=== PATIENT | female | born 1930 | race Caucasian/White ===

== ENCOUNTER 2017-01-04 12:58 | Emergency (ER) | payer MEDICARE, BC ==
[2017-01-04] MEDS ORDERED: SODIUM CHLORIDE 0.9% 10 ML FLUSH FLUSH PRN (13:12)
[2017-01-04] MEDS ORDERED: MECLIZINE 25 MG TAB PO ONE (13:13)
--- NOTE | 2017-01-04 13:15 | EDPRACDOC ---
- General Information Stated Complaint: GENERALIZED WEAKNESS Time Seen by Provider: 01/04/17 13:04 Information Source: Patient Mode Of Arrival: Ambulance Home Medications: Home Medications Omeprazole 20 mg PO DAILY 12/06/12 Triazolam 0.25 - 0.5 mg PO HS PRN 12/06/12 CYANOCOBALAMIN (Vitamin B-12) [Vitamin B-12 (cyanocobalamin)] 1,000 mcg IM .MONTHLY ON THE 05/30/14 Hum Insulin NPH/Reg Insulin Hm [Novolin 70-30 100 Unit/ml Vial] 60 unit SQ QAM 05/30/14 Apixaban [Eliquis] 5 mg PO BID 06/25/16 Calcium Carbonate [Oscal] 500 mg PO DAILY 06/25/16 Hydrocodone Bit/Acetaminophen [[place] 5-325 Tablet] 1 - 2 tab PO Q4H PRN Insulin Regular, Human [Novolin R] 5 - 10 unit SQ .BEFORE DINNER 06/25/16 Letrozole [Femara] 2.5 mg PO DAILY 06/25/16 Losartan/Hydrochlorothiazide [Losartan-Hctz 100-12.5 mg Tab] 1 tab PO DAILY Metoprolol Tartrate 25 mg PO DAILY 06/25/16 NPH, Human Insulin Isophane [Novolin N] 15 unit SQ QHS 06/25/16 Pravastatin Sodium 10 mg PO DAILY 06/25/16 Ergocalciferol (Vitamin D2) [Vitamin D] 50,000 units PO Tu@0900 01/04/17 Meclizine HCl [Antivert] 25 mg PO Q8H PRN #20 tab 01/04/17 Nitrofurantoin [Macrobid] 100 mg PO BID #14 cap 01/04/17 Sertraline HCl [Zoloft] 25 mg PO DAILY 01/04/17 Allergies/Adverse Reactions: Allergies Allergy/AdvReac Type Severity Reaction Status Date / Time adhesive Allergy See Verified 01/04/17 14:05 Comments palbociclib [From [facility]] Allergy Hives* Verified 01/04/17 14:05 - History of Present Illness Onset: today Exact Onset of Symptoms: Unknown HPI: Pt states sudden onset of dizziness described as room spinning upon standing up from bed. C/o nausea. Denies headache, fever, vision changes, cough, congestion , cp, sob, abd pain, changes in bowel or bladder, leg swelling, rash. Hx stage 4 breast cancer Symptoms Started: Reports: Suddenly Symptoms Description: Improved Weakness: Bilateral: Generalized Symptoms: Reports: Vertigo Symptom Severity: Reports: Unable to performs ADL's Associated signs and symptoms:: Reports: Nausea ED Past Medical History - History Reviewed Yes Nurses notes reviewed and agree except as marked - Patient Medical History Cardiac History: Reports: Atrial Fibrillation, Hypertension, Hypercholesterolemia Respiratory History: GI/ History: Reports: Urinary Tract Infection, Gastroesophageal Reflux Musculoskeletal History: Reports: Arthritis Psychological History: Reports: Anxiety. Denies: Depression Systemic History: Reports: Cancer (metastatic breast cancer), Diabetes Surgical History: Reports: Tonsillectomy/Adnoidectomy Date of Last Radiation Treatment: 10/2009 Date of Last Chemotherapy Date: 2008 - Family Medical History Reports: Hypertension, Diabetes, Cancer, Stroke, Cardiac Disorders - Social Medical History Smoking Status: Never smoker ETOH: None Substance Abuse: None EDM Review of Systems - Review of Systems Constitutional: Weakness Eyes: No Symptoms Reported. negative: Redness, Blurred Vision, Double Vision, Discharge, Pain, Light Sensitive, Photophobia Ears: No Symptoms Reported. negative: Pain, Hearing Loss, Drainage, Ear Pulling Throat: No Symptoms Reported. negative: Pain, Swelling Nose: No Symptoms Reported. negative: Congestion, Bleeding, Discharge, Injection, Swelling, Deformity, Ecchymosis, Tender, Abrasion, Laceration Mouth: No Symptoms Reported. negative: Pain, Drooling Respiratory: No Symptoms Reported. negative: Cough, Brassy Cough, Barky Cough, Shortness of Breath, Wheezing, Hemoptysis Cardiovascular: No Symptoms Reported. negative: Chest Pain, Palpitations, Syncope, Edema, Orthopnea, PND, Skin Mottling, Cyanosis Gastrointestinal: Nausea Genitourinary: No Symptoms Reported. negative: Dysuria, Hematuria, Frequency, Discharge, Bleeding, Testicular Pain, Neurological: Dizziness Musculoskeletal: No Symptoms Reported. negative: Neck, Chestwall, Ribs, Back, Shoulder, Arm, Elbow, Forearm, Wrist, Hand, Pelvis, Hip, Femur, Knee, Leg, Ankle , Foot Integumentary: No Symptoms Reported. negative: Itching, Rash, Bruising, Wound Allergic/Immunologic: No Symptoms Reported. negative: Hives, Itching Hematologic: No Symptoms Reported. negative: Lymphadenopathy, Easy Bruising, Easy Bleeding Psychiatric: No Symptoms Reported. negative: Anxiety, Depression, Hallucinations, Insomnia, Suicidal - Physical Exam Constitutional: Alert Oriented to: Time, Person, Place Last recorded Vital Signs: Last Vital Signs Temp Pulse 95 01/04/17 13:13 Resp BP 148/70 01/04/17 13:13 Pulse Ox Oxygen Pulse Oxygen Saturation O2 Device Oxygen Flow Rate Fraction of Inspired Oxygen ( FIO2) - HEENT Head: Normal ( normocephalic) Eye Exam: Normal (PERRL, EOMI, Sclera white) Oropharynx: Normal (Pharynx:Moist without exudate,Gums-no swelling) Tympanic Membrane: Normal ENT EAC: Normal TMJ: Normal Nose: No Symptoms Reported (septum midline) Neck: Normal (FROM, trachea at midline) - Respiratory/Cardiovascular Respiratory: Normal - CTA (BBS clear to auscultation without adventitious sounds ) Cardiovascular: Irregular - GI Auscultation: Normal (NABS) Palpation: Normal (Soft,No rebound or guarding, non distended) Tenderness: Non tender - Musculoskeletal Back: Normal (Non-Tender) Extremities: Normal (Normal tone, Pulses 2+ No cyanosis or edema, FROM) - Integumentary Skin: Normal, Warm, Dry Lymphatics: Normal (no adenopathy) - Neurologic Memory Impaired: Normal Motor Function: Normal (Normal tone, Pulses 2+ No cyanosis or edema, FROM) Cranial Nerve: Normal (CN II-X11 intact sensation, strength 5/5) Cerebellar: Normal Mood Description: Normal Perception: Normal - Differential Diagnosis CVA, Dehydration, Dysrhythmia, Electrolyte disorder, Hypoglycemia, Vertigo - Re-evaluation Re-evaluation 1 Re-evaluation Time: 15:35 (pt able to ambulate to bathroom ) - Results 01/04/17 13:30 01/04/17 13:30 01/04/17 15:35 Laboratory Results - last 24 hr 01/04/17 01/04/17 01/04/17 13:30 13:30 13:30 WBC 6.5 RBC 4.54 Hgb 14.0 Hct 41.5 MCV 92 MCH 30.9 MCHC 33.8 RDW 17.8 H Plt Count 282 MPV 8.1 Neut % (Auto) 70.5 Lymph % (Auto) 19.0 [place] % (Auto) 8.5 Eos % (Auto) 0.9 Baso % (Auto) 1.1 Absolute Neuts (auto) 4.55 Absolute Lymphs (auto) 1.24 PT 10.4 INR 1.0 APTT 23.8 Sodium 137 Potassium 3.7 Chloride 99 Carbon Dioxide 29 Anion Gap 13 BUN 16 Creatinine 0.70 Estimated GFR (MDRD) > 60 Glucose 224 H Calculated Osmolality 272 Calcium 9.3 Total Bilirubin 0.5 AST 23 ALT 37 Alkaline Phosphatase 78 Troponin I < 0.01 [id number] Pept 305 Total Protein 6.9 Albumin 4.0 Urine Color Urine Clarity Urine pH Ur Specific [place] Urine Protein Urine Glucose (UA) Urine Ketones Urine Occult Blood Urine Nitrite Urine Bilirubin Urine Urobilinogen Ur Leukocyte Esterase Urine RBC Urine WBC Ur Epithelial Cells 01/04/17 14:59 WBC RBC Hgb Hct MCV MCH MCHC RDW Plt Count MPV Neut % (Auto) Lymph % (Auto) [place] % (Auto) Eos % (Auto) Baso % (Auto) Absolute Neuts (auto) Absolute Lymphs (auto) PT INR APTT Sodium Potassium Chloride Carbon Dioxide Anion Gap BUN Creatinine Estimated GFR (MDRD) Glucose Calculated Osmolality Calcium Total Bilirubin AST ALT Alkaline Phosphatase Troponin I [id number] Pept Total Protein Albumin Urine Color Yellow Urine Clarity Clear Urine pH 5.0 Ur Specific [place] 1.005 Urine Protein Neg Urine Glucose (UA) Neg Urine Ketones Neg Urine Occult Blood Neg Urine Nitrite Neg Urine Bilirubin Neg Urine Urobilinogen <2.0 Ur Leukocyte Esterase Trace H Urine RBC 0-2 Urine WBC 5-10 H Ur Epithelial Cells Occ - EKG EKG #1 EKG Time: 13:20 Rate: bpm: 95 [place]: Normal Rhythm: Afib Block: 2, AVB ST: Nonsp Comparison: 12/06/12 - Diagnostic Imaging Head Image interpreted by: Radiologist IMPRESSION: No acute intracranial process. Chronic microvascular ischemic changes. Chest Image interpreted by: Radiologist IMPRESSION: No acute cardiopulmonary process. Decision Time to Discharge: 15:35 - Departure Disposition: Home Condition: Good Final Diagnosis: Vertigo UTI (urinary tract infection) Qualifiers: Urinary tract infection type: acute cystitis Hematuria presence: without hematuria Qualified Code(s): N30.00 - Acute cystitis without hematuria Instructions: Urinary Tract Infection in Women (ED), Dysuria, Vertigo (ED) Education/Counseling Given To: Patient Education/Counseling Given Regarding: Diagnosis, Treatment, Follow Up Referrals: Zachariah,James F, MD [Primary Care Provider] - One Week Prescriptions: New Meclizine HCl [Antivert] 25 mg PO Q8H PRN #20 tab PRN Reason: Vertigo Nitrofurantoin [Macrobid] 100 mg PO BID #14 cap No Action Omeprazole 20 mg PO DAILY Triazolam 0.25 - 0.5 mg PO HS PRN PRN Reason: Sleep Or Insomnia CYANOCOBALAMIN (Vitamin B-12) [Vitamin B-12 (cyanocobalamin)] 1,000 mcg IM .MONTHLY ON THE Hum Insulin NPH/Reg Insulin Hm [Novolin 70-30 100 Unit/ml Vial] 60 unit SQ QAM Insulin Regular, Human [Novolin R] 5 - 10 unit SQ .BEFORE DINNER Losartan/Hydrochlorothiazide [Losartan-Hctz 100-12.5 mg Tab] 1 tab PO DAILY Calcium Carbonate [Oscal] 500 mg PO DAILY Pravastatin Sodium 10 mg PO DAILY Letrozole [Femara] 2.5 mg PO DAILY Apixaban [Eliquis] 5 mg PO BID Metoprolol Tartrate 25 mg PO DAILY Hydrocodone Bit/Acetaminophen [[place] 5-325 Tablet] 1 - 2 tab PO Q4H PRN PRN Reason: Pain NPH, Human Insulin Isophane [Novolin N] 15 unit SQ QHS Ergocalciferol (Vitamin D2) [Vitamin D] 50,000 units PO Tu@0900 Sertraline HCl [Zoloft] 25 mg PO DAILY Additional Instructions: Increase fluids. Return for worse or different symptoms.
[2017-01-04 13:17] VITALS: TEMP 97.8; BMI 31.6
[2017-01-04 13:39] LABS: AUTOMATED BASOPHIL 1.1 % (0-2); AUTOMATED EOSINOPHIL 0.9 % (0-5); AUTOMATED MONOCYTE 8.5 % (3-10); AUTOMATED NEUTROPHIL 70.5 % (45-76); MPV 8.1 fL (7.4-10.4)
[2017-01-04 13:51] LABS: PARTIAL THROMB. TIME 23.8 SEC (22-35)
--- NOTE | 2017-01-04 13:52 | DIRPT ---
CLINICAL DATA: Patient with vertigo. History of stage IV breast cancer. EXAM: PORTABLE CHEST 1 VIEW COMPARISON: PET-CT 11/10/2016 FINDINGS: Monitoring leads overlie the patient. Normal cardiac and mediastinal contours. No consolidative pulmonary opacities. No pleural effusion or pneumothorax. Shoulder joint degenerative changes. IMPRESSION: No acute cardiopulmonary process. Electronically Signed By: Benton Pickett M.D. On: 01/04/2017 13:50
[2017-01-04 13:56] LABS: BLOOD UREA NITROGEN 16 MG/DL (7-17); CALCIUM 9.3 MG/DL (8.4-10.2); CALCULATED OSMOLALITY 272 MOs/Kg (270-290); CHLORIDE 99 mEq/L (98-107); GLUCOSE 224 mg/dL (70-99); SODIUM LEVEL 137 mEq/L (137-146); TOTAL PROTEIN 6.9 G/DL (6.3-8.2)
--- NOTE | 2017-01-04 14:05 | DIRPT ---
CLINICAL DATA: Patient with vertigo. History of metastatic breast cancer. EXAM: CT HEAD WITHOUT CONTRAST TECHNIQUE: Contiguous axial images were obtained from the base of the skull through the vertex without intravenous contrast. COMPARISON: PET-CT 11/10/2016 FINDINGS: Ventricles and sulci are prominent compatible with atrophy. Periventricular and subcortical white matter hypodensity compatible with chronic microvascular ischemic changes. The orbits are unremarkable. Scalp soft tissues are unremarkable. Paranasal sinuses are unremarkable. Mastoid air cells are well aerated. Calvarium is intact. IMPRESSION: No acute intracranial process. Chronic microvascular ischemic changes. Electronically Signed By: Benton Pickett M.D. On: 01/04/2017 14:03
[2017-01-04 15:21] LABS: LEUKOCYTES/URINE TRACE (NEGATIVE); NITRITE/URINE NEG (NEGATIVE); RBC/URINE 0-2 (0-5); URINE OCCULT BLOOD NEG (NEG/TRACE)
[2017-01-04 16:15] VITALS: BP 153/67; PULSE 88
== END 2017-01-04 16:14 | disposition home or self-care (01) ==
LOC: ED 12:58
DX: R42 Dizziness and giddiness (principal); N30.00 Acute cystitis without hematuria; I48.91 Unspecified atrial fibrillation; I10 Essential (primary) hypertension; E78.00 Pure hypercholesterolemia, unspecified; K21.9 Gastro-esophageal reflux disease without esophagitis; F41.9 Anxiety disorder, unspecified; E11.9 Type 2 diabetes mellitus without complications; Z79.4 Long term (current) use of insulin; Z79.899 Other long term (current) drug therapy
CPT/HCPCS: 36415; 70450; 71010; 80053; 81001; 83880; 84484; 85025; 85610; 85730; 93005; 99284; A9270; J3490